=== PATIENT | female | born 1965 | race Caucasian/White ===

== ENCOUNTER 2016-11-23 15:18 | Emergency (ER) | payer MEDICARE, OTHER ==
[~2016-11-23] VITALS: Ht 167.6 cm; Wt 72.5 kg
[~2016-11-23 15:18] MED LIST: AMBI5TAB PO; BACL10TA PO; CLON.5 PO; CYMB60CA PO; DICL1GEL TOP; DICL75 PO; FISH1000 PO; GELN10GE TOP; HYDR10TA16 PO; LITH300 PO; MOME17I; OMEGCAP19 PO; TAB-TAB PO; TOPI25TA2 PO; WAL-10TA2 PO
[2016-11-23 15:21] VITALS: BP 124/94; PULSE 102; RESP 15; TEMP 98.7; O2SAT 96
--- NOTE | 2016-11-23 15:46 | PD ---
HPI Chief Complaint: Headache Time Seen by Provider: 15:33 Travel History International Travel<30 days: No Contact w/Intl Traveler<30days: No Traveled to known affect area: No History of Present Illness HPI The patient was seen and examined in the presence of the nurse. This patient complains of headache. Duration 6 hours. Severity was moderate at onset but now has for the most part resolved. There were no alleviating factors. It was a bilateral frontal throbbing headache. There was no thunderclap onset. No fever or head injury and she does not take blood thinners. She does have history of migraines and gets them about 2 times per month. She also has chronic low back pain and takes hydrocodone and follows with pain management. She has not run out of medication and is not having withdrawal issues. PFSH Past Medical History Arthritis: Yes Blood Disorders: No Bipolar Disorder: Yes Anxiety: Yes Depression: Yes Cancer: Yes (SKIN-EXCISION) Cardiovascular Problems: No Cerebrovascular Accident: No Diabetes: No Diminished Hearing: No Endocrine: No Fibromyalgia: Yes Genitourinary: No Headaches: No Hypertension: Yes Immune Disorder: No Musculoskeletal: Yes (chronic back pain has tens unit) Neurologic: Yes (HEAD INJURY 2000) Psychiatric: Yes Reproductive: No Respiratory: No Migraines: Yes Seizures: No Thyroid Disease: No ?: Not LMP: HYSTERECTOMY : 0 Past Surgical History Abdominal Surgery: No AICD: No Arteriovenous Shunt: No Body Medical Devices: TENS UNIT Cardiac Surgery: No Ear Surgery: No Endocrine Surgery: No Eye Surgery: No Genitourinary Surgery: No Gynecologic Surgery: Yes (HYSTERECTOMY) Hysterectomy: Yes (2003) Insulin Pump: No Joint Replacement: No Oral Surgery: No Pacemaker: No Thoracic Surgery: No Social History Alcohol Use: No Tobacco Use: No Substance Use: No Allergies-Medications (Allergen,Severity, Reaction): Coded Allergies: Contrast Media (Verified Allergy, Severe, Shortness of Breath AND HIVES, ) Moxifloxacin (Verified Allergy, Severe, ITCHING, 11/23/16) Prednisone (Verified Allergy, Intermediate, HYPERTENSION, 11/23/16) INCREASES B/P Sulfa (Verified Allergy, Intermediate, HIVES, 11/23/16) Oxycodone (Verified Adverse Reaction, Intermediate, Nausea/Vomiting, ) Uncoded Allergies: VILAZODONE (Allergy, Severe, HALLUSINATIONS, 10/24/12) Reported Meds & Prescriptions Reported Meds & Active Scripts Active Lioresal (Baclofen) 10 Mg Tab 10 Mg PO TID 5 Days Diclofenac Sodium 75 Mg Tab 75 Mg PO BID Lortab 10/500 (Acetaminophen/Hydrocodone Bitart) 10 Mg/500 Mg Tab 1 Tab PO Q4HPRN FOR PAIN Reported [place] 3-6-9 Complex ([place] 3 Fatty Acids-[place] 6 Fa) Complex Cap 3 Cap PO DAILY Voltaren (Diclofenac Sodium (Topical)) 1 % Gel 1 Dose TOP QID PRN Gelnique (Oxybutynin Chloride) 10 % Gel 1 Dose TOP DAILY Fish Oil 1,000 Mg Cap 2,000 Mg PO BID Multivitamin (Multivitamins) 1 Tab Tab 1 Tab PO DAILY Topiramate 25 Mg Tab 25 Mg PO BID Loratadine 10 Mg Tab 10 Mg PO DAILY Lithotabs ([place] Carbonate) 300 Mg Tab 300 Mg PO DAILY Nasonex (Mometasone Furoate) 17 Gm [place] 1 Spr NA DIRECTED Diclofenac Sodium 75 Mg Tab 75 Mg PO BID Ambien (Zolpidem Tartrate) 5 Mg Tab 5 Mg PO HS Cymbalta (Duloxetine HCl) 60 Mg Cap 60 Mg PO BID Klonopin (Clonazepam) 0.5 Mg Tab 0.5 Mg PO DIRECTED Review of Systems General / Constitutional: No: Fever HENT: Positive: Headaches Cardiovascular: No: Chest Pain or Discomfort Respiratory: No: Cough Gastrointestinal: No: Vomiting Physical Exam Narrative NEUROLOGICAL: Awake and alert. Pupils are equal round and reactive. Motor and sensory grossly within normal limits. Five out of 5 muscle strength in all muscle groups. Normal speech. No facial droop. Normal mental status. No confusion. SKIN: Focused skin assessment reveals no rash or ulcers. Skin is warm and dry. Palpation shows no induration or nodules. NECK: Symmetrical appearance, midline trachea. No mass or crepitus. Thyroid without enlargement, tenderness, or mass. Data Data Last Documented VS Vital Signs Date Time Temp Pulse Resp B/P Pulse Ox O2 Delivery O2 Flow Rate FiO2 11/23/16 15:21 98.7 102 15 124/94 96 MDM Medical Decision Making Medical Screen Exam Complete: Yes Emergency Medical Condition: Yes Medical Record Reviewed: Yes Differential Diagnosis Differential diagnosis includes migraine, tension headache, cluster headache, meningitis. Narrative Course I have reviewed the patient's electronic medical record. Patient looks clinically well and has a normal neurologic exam. I don't have any clinical suspicion of subarachnoid hemorrhage or meningitis or stroke. Her headache is for the most part resolved and at this point is only very mild. I gave her a Zofran dose and injection of Toradol She should follow-up with primary care We discussed signs and symptoms stroke and if she develops any she will return for evaluation. I don't see any urgent indication for brain imaging. Diagnosis Primary Impression: Headache Qualified Code: R51 - Acute nonintractable headache, unspecified headache type Additional Instructions: The patient was advised to follow up with their physician and return if they worsen. Med/Other Pt SpecificInfo: Other Disposition: DISCHARGE HOME Condition: Stable Jono Larkin MD Nov 23, 2016 15:46
[2016-11-23] MEDS ORDERED: PRAZ2CAP PO (15:57)
[2016-11-23] MEDS ORDERED: TIZA4CAP3 PO (15:57)
[2016-11-23] MEDS ORDERED: TOPI1TAB32 PO (15:57)
[2016-11-23] MEDS ORDERED: LORA-474 PO (15:57)
[2016-11-23] MEDS ORDERED: LORA-567 PO (15:57)
[2016-11-23] MEDS ORDERED: HYDR-3535 PO (15:57)
[2016-11-23] MEDS ORDERED: ZIPR1CAP8 PO (15:57)
[2016-11-23] MEDS ORDERED: NALO1TAB2 PO (15:57)
[2016-11-23] MEDS ORDERED: MOME17I EACH NARE (15:57)
[2016-11-23] MEDS ORDERED: AMBI10TA PO (15:57)
[2016-11-23] MEDS ORDERED: BUTA1CAP2 PO (15:57)
[2016-11-23] MEDS ORDERED: CYMB60CA PO (15:57)
[2016-11-23] MEDS ORDERED: OMEP20TA PO (15:57)
[2016-11-23] MEDS ORDERED: SKEL800T21 PO (15:57)
[2016-11-23] MEDS ORDERED: ONDANSETRON ODT 4 MG TAB PO ONE (16:00)
[2016-11-23] MEDS ORDERED: KETOROLAC TROMETHAMINE 60 MG/2 ML (IM) VIAL IM ONE (16:00)
[2016-11-23 16:10] VITALS: BP 147/91
== END 2016-11-23 16:10 | disposition home or self-care (01) ==
LOC: PHED 15:18
DX: R51 Headache (principal); F41.8 Other specified anxiety disorders; M19.90 Unspecified osteoarthritis, unspecified site
CPT/HCPCS: 96372; 99284; J1885